=== PATIENT | female | born 1985 | race Caucasian/White ===

== ENCOUNTER 2016-06-12 21:06 | Emergency (ER) | payer MEDICAID ==
[~2016-06-12] VITALS: Ht 157.5 cm; Wt 62.5 kg
[2016-06-12 21:16] VITALS: Ht 157.5 cm; Wt 62.5 kg
[2016-06-12] MEDS ORDERED: ACETAMINOPHEN 500 MG TAB PO STA (22:25)
[2016-06-12] MEDS ORDERED: ONDANSETRON (ODT) 4 MG TAB ODT STA (22:25)
[2016-06-12] MEDS ORDERED: OSLT75C PO (23:13)
[2016-06-12] MEDS ORDERED: ONDA4TAB8 PO (23:15)
[2016-06-12] MEDS ORDERED: TYL500 PO (23:16)
--- NOTE | 2016-06-12 23:33 | ERD ---
ER Documentation Chief Complaint Date/Time DATE: 06/12/16 TIME: 23:31 Chief Complaint episodes of vomiting x 2 days HPI This is a 31-year-old female that presents to the ER with sore throat, runny nose, sneezing, coughing, body aches, fever and 2 episodes of vomiting today. Her symptoms started last night. Vomiting is nonbilious nonbloody. There is no diarrhea. Her boyfriend was recently sick with similar symptoms. She does not have any chest pain or shortness of breath. ROS 12 point review of systems was done, all negative except per HPI. Medications Home Meds Active Scripts Acetaminophen* (Tylenol*) 500 Mg Tab, 1000 MG PO Q6H Y for PAIN AND OR ELEVATED TEMP for 3 Days, TAB Prov:MATILDE AVINA 06/12/16 Ondansetron Hcl* (Zofran*) 4 Mg Tablet, 4 MG PO Q6H for NAUSEA AND/OR VOMITING, #30 TAB Prov:MATILDE AVINA 06/12/16 Oseltamivir Phosphate* (Tamiflu*) 75 Mg Capsule, 75 MG PO BID for 5 Days, CAP Prov:MATILDE AVINA 06/12/16 Allergies Allergies: Coded Allergies: No Known Allergy (Unverified , 06/12/16) PMhx/Soc Medical and Surgical Hx: pt denies Medical Hx, pt denies Surgical Hx Hx Alcohol Use: Yes (socially) Hx Substance Use: No Hx Tobacco Use: No Smoking Status: Never smoker Physical Exam Vitals Vital Signs Date Time Temp Pulse Resp B/P Pulse Ox O2 Delivery O2 Flow Rate FiO2 06/12/16 21:16 98.7 100 20 129/75 99 Physical Exam GENERAL: The patient is well-developed, well-nourished, in no acute distress. NECK: Cervical spine is non tender with no step off. Supple, no nuchal rigidity HEENT: Atraumatic. Pupils equal, round and reactive to light. Extraocular muscles are grossly intact. Conjunctivae pink, no discharge. Bilateral tympanic membranes are clear with no evidence of erythema, effusion or dulling of the light reflex. Tonsilar erythema with no exudates or uvular deviation. Clear rhinorrhea. RESPIRATORY: Clear to auscultation bilaterally. There are no rales, wheezes or rhonchi. HEART: Regular rate and rhythm. No murmurs, clicks, rubs or gallops. EXTREMITIES: No clubbing or cyanosis. Full range of motion. Grossly neurovascularly intact. NEUROLOGIC: Alert and oriented. Cranial nerves II through XII are intact. SKIN: There is no rash. The skin is warm and dry. Results 24 hrs Current Medications Medications (Trade) Dose Ordered Sig/Jevon Route PRN Reason Start Time Stop Time Status Last Admin Dose Admin Ondansetron HCl (Zofran Odt) 4 mg ONCE STAT ODT 06/12/16 22:25 06/12/16 22:26 DC 06/12/16 22:33 Acetaminophen (Tylenol Tab) 1,000 mg ONCE STAT PO 06/12/16 22:25 06/12/16 22:26 DC 06/12/16 22:33 Procedures/MDM Differential diagnosis includes but is not limited to; Viral URI, allergic rhinitis, bronchitis, pertussis,pneumonia. Patient has influenza-like symptoms. At this time patient is afebrile and well-appearing. Clinical suspicion for pneumonia is low as patient appears well, is not hypoxic or in any respiratory distress. Additionally, patients physical examination is benign. Plan was discussed with patient they understand and agree. Patient needs to follow up with PCP in 1-2 days or return to ER sooner if symptoms worsen. Departure Diagnosis: Primary Impression: Influenza-like symptoms Condition: Stable Patient Instructions: Influenza (Adult) Additional Instructions: Call your primary care doctor TOMORROW for an appointment during the next 1-2 days.See the doctor sooner or return here if your condition worsens before your appointment time. MATILDE AVINA Jun 12, 2016 23:33
[2016-06-12 23:34] VITALS: BP 141/96; PULSE 77; RESP 18; TEMP 98.2
== END 2016-06-12 23:35 | disposition home or self-care (01) ==
LOC: FTE 21:06
DX: J02.9 Acute pharyngitis, unspecified (principal); R50.9 Fever, unspecified; R09.89 Other specified symptoms and signs involving the circulatory and respiratory systems; R05 Cough; R52 Pain, unspecified; R11.10 Vomiting, unspecified
CPT/HCPCS: Z7610 ×2; 99284

== ENCOUNTER 2016-06-21 19:20 | Emergency (ER) | payer MEDICAID ==
[~2016-06-21] VITALS: Ht 157.5 cm; Wt 60.5 kg
[~2016-06-21 19:20] MED LIST: ONDA4TAB8 PO; OSLT75C PO; TYL500 PO
[2016-06-21 19:33] VITALS: Ht 157.5 cm; Wt 60.5 kg
--- NOTE | 2016-06-21 20:22 | ERD ---
ER Documentation Chief Complaint Date/Time DATE: 06/21/16 TIME: 20:19 Chief Complaint headache, sore throat, cough x 1 week HPI 31-year-old female presents to ER with chief complaint of sore throat and dry cough 1 week. She was recently seen in the ER and diagnosed with flu like illness, she denies worsening of symptoms but states she is concerned because her symptoms have not resolved. However she states that she no longer has fever or vomiting. She denies abdominal pain, neck stiffness, rash, chills, shortness of breath, dysphagia, focal changes, drooling, and ear pain. She denies recent travel. States that she has taken [id number]-pqt-wytwupg medications such as decongestant nasal spray and a [place] cold medication which she does not know the name of. ROS All systems reviewed and are negative except as per history of present illness. Medications Home Meds Active Scripts Spnbwvorwmn-Z-Pybooqfupj Hb* (Guaifenesin* DM Syrup) 120 Ml Syrup, 10 ML PO Q4H Y for COUGH for 7 Days, #1 BOTTLE Prov:Beatriz Emanuel PA-C 06/21/16 Ibuprofen* (Motrin*) 600 Mg Tab, 600 MG PO Q6, #30 TAB Prov:Beatriz Emanuel PA-C 06/21/16 Pseudoephedrine Hcl (Sudafe 12-Hour) 120 Mg Tablet.er, 120 MG PO BID Y for CONGESTION for 5 Days, #10 TAB.SA Prov:Beatriz Emanuel PA-C 06/21/16 Acetaminophen* (Tylenol*) 500 Mg Tab, 1000 MG PO Q6H Y for PAIN AND OR ELEVATED TEMP for 3 Days, TAB Prov:MATILDE AVINA 06/12/16 Ondansetron Hcl* (Zofran*) 4 Mg Tablet, 4 MG PO Q6H for NAUSEA AND/OR VOMITING, #30 TAB Prov:MATILDE AVINA 06/12/16 Oseltamivir Phosphate* (Tamiflu*) 75 Mg Capsule, 75 MG PO BID for 5 Days, CAP Prov:MATILDE AVINA 06/12/16 Allergies Allergies: Coded Allergies: No Known Allergy (Unverified , 06/12/16) PMhx/Soc Hx Alcohol Use: Yes (socially) Hx Substance Use: No Hx Tobacco Use: No Physical Exam Vitals Vital Signs Date Time Temp Pulse Resp B/P Pulse Ox O2 Delivery O2 Flow Rate FiO2 06/21/16 19:33 97.7 114 20 137/72 97 Physical Exam GENERAL: Non-toxic. No apparent signs of distress. HEENT: Atraumatic. Bilateral eyes are PERRL EOM intact. Normal conjunctiva, no injection. No eyelid or lower eyelid swelling noted. Ears: Normal tympanic membrane, no erythema or bulging. No ear canal swelling. No ear discharge. Nose : no nasal discharge. Throat: Oropharynx normal. Tongue pink and moist. Mild tonsillar erythema bilaterally, no edema or exudate.. No lymphadenopathy. LUNGS: Clear to auscultation. No accessory muscle use. No wheezing, no crackles. No signs or symptoms of respiratory distress. HEART: Regular rate and rhythm. No murmurs, clicks, rubs or gallops. NEURO: Normal mental status for age. Good muscle tone. SKIN: There is no apparent rash, petechiae, erythema or swelling. Good skin turgor. Procedures/MDM Patient was recently seen here and diagnosed with influenza given a prescription for Tamiflu which she states she did not take. Currently she appears to be in no acute distress, has vital stable signs of febrile. She denies worsening of symptoms, came into the ER today because she was concerned that symptoms of sore throat, nasal congestion and cough had persisted longer than 1 week. On physical exam there are no signs of active bacterial infection, no tonsillar edema or exudate. TMs were normal. Lungs were clear to auscultation bilaterally. I explained that symptoms of flu including cough and nasal congestion and persist after fever subsides. However at this time he does not need any imaging or lab work, because based on patient history and physical exam I have low suspicion for pneumonia, strep pharyngitis, otitis media, meningitis, peritonsillar abscess, epiglottitis, and sepsis. I suggested use of OTC medications for symptomatic relief and provided a prescription for the the event that the patient's insurance covers them. -Sudafed for nasal congestion -Guaifenesin DM for cough -Ibuprofen for body aches Patient is stable for discharge and outpatient management at this time advised to follow-up with her PCP in 1-2 days. Departure Diagnosis: Primary Impression: Flu-like symptoms Condition: Good Patient Instructions: Influenza Referrals: [facility] Beatriz Emanuel PA-C Jun 21, 2016 20:22
[2016-06-21] MEDS ORDERED: GUAI120S26 PO (20:25)
[2016-06-21] MEDS ORDERED: PSEU120T11 PO (20:25)
[2016-06-21] MEDS ORDERED: IBUP-1542 PO (20:25)
== END 2016-06-21 20:38 | disposition home or self-care (01) ==
LOC: E/R 19:20
DX: J02.9 Acute pharyngitis, unspecified (principal); R09.81 Nasal congestion; R05 Cough
CPT/HCPCS: 99283

== ENCOUNTER 2016-07-08 21:45 | Emergency (ER) | payer MEDICAID ==
[~2016-07-08] VITALS: Ht 157.5 cm; Wt 62.5 kg
[~2016-07-08 21:45] MED LIST changes: +GUAI120S26 PO; +IBUP-1542 PO; +PSEU120T11 PO
[2016-07-08 21:49] VITALS: Ht 157.5 cm; Wt 62.5 kg
[2016-07-09] MEDS ORDERED: DIPHENHYDRAMINE 50 MG INJ IM ONE (02:30)
[2016-07-09] MEDS ORDERED: HYDR-3011 PO (02:32)
[2016-07-09] MEDS ORDERED: KENC1 TOP (02:32)
--- NOTE | 2016-07-09 02:35 | ERD ---
ER Documentation Chief Complaint Date/Time DATE: 07/09/16 TIME: 02:32 Chief Complaint pt reports rash from latex gloves at work HPI 31-year-old female presents here in emergency department complains of rash all over the body started 3 weeks ago. Patient states it started when she was wearing latex gloves. She has had this rash before, was told to have eczema, used to take steroid cream to help with this. Right now it spread all over the body and itching all over the body. Patient denies any lip swelling, tongue swelling or stridor. Patient does not have any shortness breath or wheezing. Patient denies any fever or chills. Patient did not take any medications to help with symptoms. ROS All systems reviewed and are negative except as per history of present illness. Medications Home Meds Active Scripts Hydroxyzine Hcl* (Hydroxyzine Hcl*) 25 Mg Tablet, 25 MG PO Q8H Y for ITCHING, # 30 TAB Prov:MOSHE LÓPEZ [employer] 07/09/16 Triamcinolone Acetonide (Triamcinolone Acetonide) 0.1% - 15 Gm Cream.gm., 1 APPLIC TOP BID, #1 TUB Prov:MOSHE LÓPEZ [employer] 07/09/16 Oiayjafexlw-Y-Sfmbalccuj Hb* (Guaifenesin* DM Syrup) 120 Ml Syrup, 10 ML PO Q4H Y for COUGH for 7 Days, #1 BOTTLE Prov:Beatriz Emanuel PA-C 06/21/16 Ibuprofen* (Motrin*) 600 Mg Tab, 600 MG PO Q6, #30 TAB Prov:Beatriz Emanuel PA-C 06/21/16 Pseudoephedrine Hcl (Sudafe 12-Hour) 120 Mg Tablet.er, 120 MG PO BID Y for CONGESTION for 5 Days, #10 TAB.SA Prov:Beatriz Emanuel PA-C 06/21/16 Acetaminophen* (Tylenol*) 500 Mg Tab, 1000 MG PO Q6H Y for PAIN AND OR ELEVATED TEMP for 3 Days, TAB Prov:MATILDE AVINA 06/12/16 Ondansetron Hcl* (Zofran*) 4 Mg Tablet, 4 MG PO Q6H for NAUSEA AND/OR VOMITING, #30 TAB Prov:MATILDE AVINA 06/12/16 Oseltamivir Phosphate* (Tamiflu*) 75 Mg Capsule, 75 MG PO BID for 5 Days, CAP Prov:MATILDE AVINA 06/12/16 Allergies Allergies: Coded Allergies: No Known Allergy (Unverified , 06/12/16) PMhx/Soc Medical and Surgical Hx: pt denies Medical Hx, pt denies Surgical Hx History of Surgery: No Anesthesia Reaction: No Hx Neurological Disorder: No Hx Respiratory Disorders: No Hx Cardiac Disorders: No Hx Psychiatric Problems: No Hx Miscellaneous Medical Probl: No Hx Alcohol Use: Yes Hx Substance Use: No Hx Tobacco Use: No Smoking Status: Never smoker FmHx Family History: No coronary disease, No diabetes, No other Physical Exam Vitals Vital Signs Date Time Temp Pulse Resp B/P Pulse Ox O2 Delivery O2 Flow Rate FiO2 07/09/16 03:11 98.0 75 18 112/65 99 Room Air 07/08/16 21:49 98.3 110 18 131/83 98 Physical Exam GENERAL: The patient is well developed and appropriate for usual state of health, in no apparent distress. CHEST: Clear to auscultation bilaterally. There are no rales, wheezes or rhonchi. HEART: Regular rate and rhythm. No murmurs, clicks, rubs or gallops. No S3 or S4. ABDOMEN: Soft, nontender and nondistended. Good bowel sounds. No rebound or guarding. No gross peritonitis. No gross organomegaly or masses. No Rojas sign or McBurney point tenderness. BACK: No midline or flank tenderness. EXTREMITIES: Equal pulses bilaterally. There is no peripheral clubbing, cyanosis or edema. No focal swelling or erythema. Full range of motion. Grossly neurovascularly intact. NEURO: Alert and oriented. Cranial nerves 2-12 intact. Motor strength in all 4 extremities with 5/5 strength. Sensation grossly intact. Normal speech and gait. SKIN: Noted maculopapular rash noted all over the body with lichenification and dryness surrounding the rashes. Patient has all over the body, and also in antecubital aspect of both arms. There is no apparent rash or petechia. The skin is warm and dry. HEMATOLOGIC AND LYMPHATIC: There is no evidence of excessive bruising or lymphedema. No gross cervical, axillary, or inguinal lymphadenopathy. Results 24 hrs Current Medications Medications (Trade) Dose Ordered Sig/Jevon Route PRN Reason Start Time Stop Time Status Last Admin Dose Admin Diphenhydramine HCl (Benadryl) 50 mg ONCE ONCE IM 07/09/16 02:30 07/09/16 02:31 DC 07/09/16 02:29 Benadryl was given to help with itching, verbalized feeling much better afterwards. Procedures/MDM Medical decision making: Patient's rash all over the body and itching most likely consistent with eczema. It can be also some form of contact dermatitis. No symptoms of anaphylactic shock. No symptoms of respiratory distress. No angioedema noted. No symptoms of any contagious rash at this time. Patient does not have any symptoms of sepsis. Patient appears well and is hemodynamically stable. Prescription was given for hydroxyzine, triamcinolone cream, is advised to follow with primary care doctor in 2-3 days for reevaluation of symptoms. Patient was advised to return to emergency department for any worsening symptoms. Departure Diagnosis: Primary Impression: Eczema Eczema type: unspecified Qualified Code: L30.9 - Eczema, unspecified type Condition: Stable Patient Instructions: Atopic Dermatitis (Eczema) MOSHE LÓPEZ NP Jul 09, 2016 02:35
[2016-07-09 03:11] VITALS: BP 112/65; PULSE 75; RESP 18; TEMP 98
== END 2016-07-09 03:12 | disposition home or self-care (01) ==
LOC: FTE 21:45
DX: L30.9 Dermatitis, unspecified (principal)
CPT/HCPCS: 96372; J1200; Z7502